=== PATIENT | male | born 1945 | race Caucasian/White ===

== ENCOUNTER 2017-03-28 12:26 | Outpatient (CLI) | payer MEDICARE, OTHER ==
--- NOTE | 2017-03-28 16:33 | MRI ---
MRI PELVIS WITH AND WITHOUT CONTRAST: Date: 03/28/17 HISTORY: Ischial pain. COMPARISON: None. TECHNIQUE: Multiplanar, multisequence MRI pelvis performed prior to and after the intravenous administration of contrast. FINDINGS: Bones: Bilateral pars interarticularis defects are present at L5 with nearly 1.0 cm of anterolisthesis. The re is subsequent severe bilateral neural foraminal narrowing. There is also narrowing of the spinal canal. 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 There is narrowing of the pubic symphysis. No stress edema of the pelvis. No abnormal enhancement of the osseous structures. There is os acetabulum on the right with edema. There is also edema within a left acetabular osteoph yte subchondral cyst formation. There are enthesopathic changes to both greater trochanters. Tendons: Bilateral gluteus medius and minimus tendinosis with partial tearing of the left gluteus medius tend on and subsequent greater trochanteric bursitis. Left ischium is normal. There is mild undersurface tearing of both bilateral semimembranosus and com mon hamstrings tendon, worse on the left. There is mild tendinosis of the bilateral iliopsoas tendon s. Mild right-sided iliopsoas bursitis. Mild edema and atrophy of the paraspinal musculature lower lumbar spine. No soft tissue defect over the sacrum or ischium. IMPRESSION: 1. No signal alteration of the ischium. 2. Bilateral pars interarticularis defects L5 with nearly 1.0 cm of anterolisthesis with subsequent severe neural foraminal narrowing. 3. Right Type II-A lumbosacral transitional vertebra. 4. 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 5. 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 6. Moderate right and moderate to severe left gluteus medius tendinosis with partial tearing of the left gluteus medius tendon and greater trochanteric bursitis. 7. Mild bilateral iliopsoas tendinosis and partial tearing at its insertion. 8. Left worse than right undersurface partial tearing of both the semimembranosis and common hamstr ings tendons with interstitial delaminating tear on the right and left, although incompletely evalua grayson. 9. Bilateral lower paraspinal muscle atrophy and edema, likely denervation in nature from advanced degenerative disease. POS: OFF
== END 2017-03-28 12:27 | disposition home or self-care (01) ==
LOC: MRI 12:26
PROVIDERS: ATTEND Anesthesiology Pain Medicine
DX: M25.552 Pain in left hip (principal); M76.02 Gluteal tendinitis, left hip; M76.01 Gluteal tendinitis, right hip; M43.16 Spondylolisthesis, lumbar region; M62.58 Muscle wasting and atrophy, not elsewhere classified, other site; R60.9 Edema, unspecified
CPT/HCPCS: 72197

== ENCOUNTER 2021-08-13 10:24 | Outpatient (CLI) | payer MEDICARE, BC | END 2021-08-13 10:25 | disposition home or self-care (01) | LOC: MRI 10:24 | PROVIDERS: ATTEND Anesthesiology Pain Medicine | DX: M47.26 Other spondylosis with radiculopathy, lumbar region (principal); M51.16 Intervertebral disc disorders with radiculopathy, lumbar region; M41.9 Scoliosis, unspecified; M43.17 Spondylolisthesis, lumbosacral region; Z98.890 Other specified postprocedural states; M48.061 Spinal stenosis, lumbar region without neurogenic claudication | CPT/HCPCS: 72148 ==

== ENCOUNTER 2021-10-25 12:32 | Outpatient (CLI) | payer MEDICARE, BC | END 2021-10-25 12:33 | disposition home or self-care (01) | LOC: MRI 12:32 | PROVIDERS: ATTEND Nurse Practitioner Family | DX: M25.552 Pain in left hip (principal); S43.432A Superior glenoid labrum lesion of left shoulder, initial encounter; S76.012A Strain of muscle, fascia and tendon of left hip, initial encounter; M70.62 Trochanteric bursitis, left hip; M67.854 Other specified disorders of tendon, left hip; M62.58 Muscle wasting and atrophy, not elsewhere classified, other site | CPT/HCPCS: 72195 ==